=== PATIENT | female | born 1980 | race Caucasian/White ===

== ENCOUNTER 2016-09-15 12:23 | Emergency (ER) | payer MEDICAID, OTHER ==
[~2016-09-15] VITALS: Ht 154.9 cm; Wt 65.0 kg
[2016-09-15 12:32] VITALS: Ht 154.9 cm; Wt 65.0 kg
[2016-09-15] MEDS ORDERED: ACETAMINOPHEN 500 MG TAB PO STA (13:57)
--- NOTE | 2016-09-15 14:07 | ERD ---
ER Documentation Chief Complaint Date/Time DATE: 09/15/16 TIME: 14:05 Chief Complaint Pt 6 week , VB since yesterday and R pelvic pain. HPI This is a 36-year-old [facility] complaining of right-sided flank pain, swollen feet, nausea, headache and some vaginal bleeding that started last night. Patient states she is approximately 6 weeks . She has not taken any medication for the . denies any dysuria. ROS All systems reviewed and are negative except as per history of present illness. Medications Home Meds Active Scripts Nitrofurantoin Monohyd Macrocr* (Macrobid*) 100 Mg Capsr, 100 MG PO BID for 7 Days, CAP Prov:KRISTEN MILIAN PA-C 09/15/16 Acetaminophen* (Tylophen*) 500 Mg Capsule, 1 CAP PO Q6H Y for PAIN AND OR ELEVATED TEMP, #30 CAP Prov:KRISTEN MILIAN PA-C 09/15/16 Allergies Allergies: Coded Allergies: No Known Drug Allergy (Verified Allergy, Unknown, 12/30/06) PMhx/Soc Medical and Surgical Hx: pt denies Medical Hx, pt denies Surgical Hx Hx Alcohol Use: No Hx Substance Use: No Hx Tobacco Use: No Physical Exam Vitals Vital Signs Date Time Temp Pulse Resp B/P Pulse Ox O2 Delivery O2 Flow Rate FiO2 09/15/16 12:32 98.1 78 16 127/83 98 Physical Exam Const: No acute distress Head: Atraumatic Eyes: Normal Conjunctiva ENT: Normal External Ears, Nose and Mouth. Neck: Full range of motion..~ No meningismus. Resp: Clear to auscultation bilaterally Cardio: Regular rate and rhythm, no murmurs Abd: Soft, right sided pelvic pain and suprapubic tenderness non distended. Normal bowel sounds. No right lower quadrant pain. No tenderness in McBurney's. No left lower quadrant tenderness Skin: No petechiae or rashes Back: No midline or flank tenderness Ext: No cyanosis, or edema Neur: Awake and alert Psych: Normal Mood and Affect Result Diagram: 09/15/16 1406 Results 24 hrs Laboratory Tests Test 09/15/16 14:02 09/15/16 14:06 Urine Bacteria MODERATE Urine Bilirubin NEGATIVE Urine Clarity SLIGHTLY CLOUDY Urine Color LT. YELLOW Urine Glucose NEGATIVE% Urine Hemoglobin 1+ Urine Ketones NEGATIVE Urine Leukocyte Esterase TRACE Urine Microscopic RBC 0-2/HPF Urine Microscopic WBC 5-10/HPF Urine Nitrite NEGATIVE Urine Specific Union 1.010 Urine Squamous Epithelial Cells MODERATE Urine Total Protein NEGATIVE Urine Urobilinogen 0.2 E.U./dL Urine pH 5.5 Basophils # 0.110^3/ul Basophils % 0.6% Beta HCG, Quantitative 798631.0mIU/ml Blood Morphology Comment Eosinophils # 0.310^3/ul Eosinophils % 2.6% Hematocrit 39.1% Hemoglobin 12.8g/dl Lymphocytes # 2.110^3/ul Lymphocytes % 21.5% Mean Corpuscular Hemoglobin 29.0pg Mean Corpuscular Hemoglobin Concent 32.8g/dl Mean Corpuscular Volume 88.2fl Mean Platelet Volume 8.6fl Monocytes # 0.710^3/ul Monocytes % 6.9% Neutrophils # 6.810^3/ul Neutrophils % 68.4% Nucleated Red Blood Cells # 0.010^3/ul Nucleated Red Blood Cells % 0.0/100WBC Platelet Count 44771^3/UL Red Blood Count 4.4310^6/ul Red Cell Distribution Width 14.4% White Blood Count 10.010^3/ul Current Medications Medications (Trade) Dose Ordered Sig/Jc Route PRN Reason Start Time Stop Time Status Last Admin Dose Admin Acetaminophen (Tylenol Tab) 500 mg ONCE STAT PO 09/15/16 13:57 09/15/16 13:59 DC 09/15/16 14:13 DIAGNOSTIC IMAGING REPORT Patient: FRANNY GALARZA : 1980 Age: 36 Sex: F MR #: [id number] DOS: 09/15/16 1357 Ordering MD: KRISTEN MILIAN PA-C Location: [facility] Room/Bed: PROCEDURE: OBSTETRICAL ULTRASOUND WITH ENDOVAGINAL IMAGES CLINICAL INDICATION: Vaginal Bleed () TECHNIQUE: Multiple sonographic images of the pelvis were obtained utilizing a transabdominal and endovaginal technique. The images were reviewed on a PACS workstation. COMPARISON: None. LMP: 07/26/2016 FINDINGS: There is a single live intrauterine with heart rate of 157 beats per minute, mean sac diameter of 3.18 cm, and crown-rump length of 1.50 cm which is consistent with a gestational age of 8 weeks, 1 day . The estimated date of delivery by ultrasound is 04/26/2017 . The estimated gestational age by LMP is 7 weeks, 2 days . The estimated date of delivery by LMP is 05/02/2017 . The right ovary is not visualized. The left ovary measures 2.9 x 2.2 x 2.3 cm. There is normal vascular flow in the left ovary No significant ovarian lesions are seen. No significant pelvic free fluid is identified. IMPRESSION: Single live intrauterine consistent with a gestational age of 8 weeks , 1 day . The estimated date of delivery is 04/26/2017 . Dating by ultrasound is within 6 days of dating by LMP. Nonvisualization of the right ovary. RPTAT: EE Physician Kristen Date Time Electronically viewed and signed by Wilman Torres Physician on 09/15/2016 14:46 RA/ CC: KRISTEN MILIAN PA-C Procedures/MDM This is a 36-year-old female who presents to emergency department today with multiple complaints. Patient is 6 weeks . Patient was complaining of vaginal bleeding and some right-sided pelvic pain and therefore I did obtain a complete OB workup. Laboratory work shows no elevated white blood cell count. She is not anemic. Platelets are within normal limits. UA is trace leukocyte Estrace. I will treat the patient for a urinary tract infection. Given her complaints of pelvic pain. Beta Quant hCG 004255.0 Rh status O +positive Ultrasound shows a single live intrauterine consistent with a gestational age of 8 weeks and 1 day. Estimated date of delivery is 04/26/2017. There is no pelvic free fluid. I have low suspicion for ectopic , tuboovarian abscess or ovarian torsion. Patient vaginal bleeding in early may be early normal versus possible early failed Billie and I have explained this to the patient. Patient has been instructed to get a repeat beta Quant 48 hours. Patient was given Tylenol here in the emergency department. I will give her a prescription for Tylenol and Macrobid for home. At this time the patient is stable for discharge and outpatient management. Patient should follow up with their PCP in the next 1-2 days. They may return to the emergency department sooner for any persistent or worsening of symptoms. Patient understood and agreed with the plan. Discussed the patient with Dr. Dimas and he is in agreement with the plan. Departure Diagnosis: Primary Impression: Pelvic pain during Additional Impression: Vaginal bleeding in patient at less than 20 weeks gestation Condition: KRISTEN Byrd PA-C Sep 15, 2016 14:07
[2016-09-15 14:44] LABS: BASOPHIL # 0.1 10^3/ul (0.0-0.1); BASOPHILS % 0.6 % (0.0-2.0); EOSINOPHILS # 0.3 10^3/ul (0.0-0.5); EOSINOPHILS % 2.6 % (0.0-7.0); HEMATOCRIT 39.1 % (37.0-47.0); HEMOGLOBIN 12.8 g/dl (12.0-16.0); LYMPHOCYTES # 2.1 10^3/ul (0.8-2.9); LYMPHOCYTES % 21.5 % (15.0-51.0); MEAN CORPUSCULAR HGB CONC 32.8 g/dl (32.0-37.0); MEAN CORPUSCULAR VOLUME 88.2 fl (82.0-101.0); MEAN PLATELET VOLUME 8.6 fl (7.4-10.4); MONOCYTE # 0.7 10^3/ul (0.3-0.9); MONOCYTES % 6.9 % (0.0-11.0); NEUTROPHIL # 6.8 10^3/ul (1.6-7.5); NEUTROPHILS % 68.4 % (39.0-77.0); PLATELET COUNT 359 10^3/UL (140-440); RED BLOOD COUNT 4.43 10^6/ul (4.20-5.40); RED CELL DISTRIBUTION WIDTH 14.4 % (11.5-14.5)
--- NOTE | 2016-09-15 14:47 | RADRPT ---
PROCEDURE: OBSTETRICAL ULTRASOUND WITH ENDOVAGINAL IMAGES CLINICAL INDICATION: Vaginal Bleed () TECHNIQUE: Multiple sonographic images of the pelvis were obtained utilizing a transabdominal and endovaginal technique. The images were reviewed on a PACS workstation. COMPARISON: None. LMP: 07/26/2016 FINDINGS: There is a single live intrauterine with heart rate of 157 beats per minute, mean sa c diameter of 3.18 cm, and crown-rump length of 1.50 cm which is consistent with a gestational age o f 8 weeks, 1 day . The estimated date of delivery by ultrasound is 04/26/2017 . The estimated gestational age by LMP is 7 weeks, 2 days . The estimated date of delivery by LMP is 05/02/2017 . The right ovary is not visualized. The left ovary measures 2.9 x 2.2 x 2.3 cm. There is normal vascu lar flow in the left ovary No significant ovarian lesions are seen. No significant pelvic free fluid is identified. IMPRESSION: Single live intrauterine consistent with a gestational age of 8 weeks, 1 day . The estimated date of delivery is 04/26/2017 . Dating by ultrasound is within 6 days of dating by LMP. Nonvisualization of the right ovary. RPTAT: EE Physician Kristen Date Time Electronically viewed and signed by Physician Kristen on 09/15/2016 14:46 /
[2016-09-15 14:56] LABS: ADD UMIC YES; URINE BILIRUBIN (Dip) NEGATIVE (NEGATIVE); URINE BLOOD (Dip) 1+ (NEGATIVE); URINE COLOR LT. YELLOW (YELLOW); URINE GLUCOSE (Dip) NEGATIVE (NEGATIVE); URINE KETONES (Dip) NEGATIVE (NEGATIVE); URINE LEUKOCYTE ESTERASE (Dip) TRACE (NEGATIVE); URINE NITRITE (Dip) NEGATIVE (NEGATIVE); URINE TOTAL PROTEIN (Dip) NEGATIVE (NEGATIVE); URINE UROBILINOGEN (Dip) 0.2 E.U./dL (0.1-1.0)
[2016-09-15 15:09] LABS: BACTERIA,URINE MODERATE; SQUAMOUS EPITHELIAL CELL,UR MODERATE; URINE RBCS 0-2 /HPF (0)
[2016-09-15 15:10] LABS: CONDITION 1
[2016-09-15] MEDS ORDERED: ACET500C5 PO (17:13)
[2016-09-15] MEDS ORDERED: NITR-58 PO (17:16)
== END 2016-09-15 17:41 | disposition home or self-care (01) ==
LOC: FTE 12:23
DX: O26.891 Other specified pregnancy related conditions, first trimester (principal); R10.2 Pelvic and perineal pain; Z3A.08 8 weeks gestation of pregnancy
CPT/HCPCS: 36415; 76801; 81001; 81003; 84702; 85025; 86900; 86901